=== PATIENT | male | born 1960 | race Caucasian/White ===

== ENCOUNTER 2017-04-14 09:07 | Emergency (ER) | payer BC ==
[2017-04-14 09:26] VITALS: BP 125/70
--- NOTE | 2017-04-14 09:54 | UC ---
Lower Extremity/Ankle HPI - HPI Summary HPI Summary: right great toe pain began last night, today toe is red and tender with some lymph streaking, no fevers chills or drainage from toe- - History of Current Complaint Chief Complaint: UCLowerExtremity Stated Complaint: TOE INJURY Time Seen by Provider: 04/14/17 09:52 Hx Obtained From: Patient Onset/Duration: Sudden Onset, Lasting Days - 1, Worse Since - this morning Severity Initially: Moderate Severity Currently: Moderate Pain Intensity: 7 Pain Scale Used: 0-10 Numeric Aggravating Factor(s): Standing, Ambulation Able to Bear Weight: Yes - Allergies/Home Medications Allergies/Adverse Reactions: Allergies Allergy/AdvReac Type Severity Reaction Status Date / Time No Known Allergies Allergy Verified 03/19/16 13:02 Home Medications: Home Medications Glucosamine-Chondroitin [Glucosamine & Chondroitin 500-400 mg] 1 cap PO TID [History Confirmed 04/14/17] Multiple Vitamins W/ Minerals [Multivitamin Men] 1 tab PO TID 04/14/17 [History Confirmed 04/14/17] Propafenone HCl [Propafenone HCl ER] 1 tab PO BID 04/14/17 [History Confirmed ] celeCOXIB CAP* [Celebrex CAP*] 1 tab PO DAILY PRN 04/14/17 [History Confirmed ] PMH/Surg Hx/FS Hx/Imm Hx Previously Healthy: No Cardiovascular History: Atrial Fibrillation - Surgical History Surgical History: Yes Surgery Procedure, Year, and Place: Rt KNEE - ARTHROSCOPIC 1978. CARDIAC ABLATION 07/20/2012 - Family History Known Family History: Positive: None - Social History Occupation: Employed Full-time Lives: With Family Alcohol Use: Rare Substance Use Type: None Smoking Status (MU): Never Smoked Tobacco - Immunization History Most Recent Influenza Vaccination: 03/12 Review of Systems Constitutional: Negative Skin: Other - erythema around right great toe nail with lymph streaking Eyes: Negative ENT: Negative Respiratory: Negative Cardiovascular: Negative Gastrointestinal: Negative Genitourinary: Negative Motor: Negative Neurovascular: Negative Musculoskeletal: Negative Neurological: Negative Psychological: Negative Is Patient Immunocompromised?: No All Other Systems Reviewed And Are Negative: Yes Physical Exam Triage Information Reviewed: Yes Appearance: Well-Appearing, No Pain Distress, Well-Nourished Vital Signs: Initial Vital Signs Temp 98.1 F 04/14/17 09:21 Pulse 73 04/14/17 09:21 Resp 18 04/14/17 09:21 BP 125/70 04/14/17 09:21 Pulse Ox 100 04/14/17 09:21 Vital Signs Reviewed: Yes Eye Exam: Normal Eyes: Positive: Conjunctiva Clear ENT Exam: Normal ENT: Positive: Normal ENT inspection, Hearing grossly normal. Negative: Nasal drainage, Trismus, Muffled voice, Hoarse voice Dental Exam: Normal Neck exam: Normal Neck: Positive: Supple, Nontender Respiratory Exam: Normal Respiratory: Positive: Chest non-tender, No respiratory distress, No accessory muscle use Cardiovascular Exam: Normal Cardiovascular: Positive: RRR, Pulses Normal, Brisk Capillary Refill Neurological Exam: Normal Neurological: Positive: Alert, Fatigued Psychological: Positive: Normal Response To Family Skin Exam: Other Skin: Positive: Other - erythema around right great toe nail Lower Extremity Course/Dx - Course Course Of Treatment: Keflex warm soaks, bulky dressing for protection, Keflex follow with pcp prn - Differential Dx/Diagnosis Provider Diagnoses: cellulitis right great toe Discharge - Discharge Plan Condition: Stable Disposition: HOME Prescriptions: Cephalexin CAP* [Keflex CAP*] 500 mg PO QID #28 cap Patient Education Materials: Paronychia (ED), Lymphangitis (ED), Warm Compress or Soak (ED) Referrals: Ric Roe DPM [Doctor of Podiatric Medicine] - 2 Days
== END 2017-04-14 10:16 | disposition home or self-care (01) ==
LOC: UCEAST 09:07
DX: L03.039 Cellulitis of unspecified toe (principal); I48.91 Unspecified atrial fibrillation
CPT/HCPCS: 99212; G0463

== ENCOUNTER 2017-04-14 19:50 | Emergency (ER) | payer BC ==
[2017-04-14] MEDS ORDERED: Ondansetron INJ* 2 MG/ML VIAL IV ONE (20:46)
[2017-04-14] MEDS ORDERED: Morphine INJ* 4 MG/ML 1 ML CARPUJECT IV ONE ×2 (20:47→22:22)
[2017-04-14] MEDS ORDERED: NS 0.9% 1000 ML* 1,000 ML IV ONE (20:48)
[2017-04-14] MEDS ORDERED: Vancomycin(*) 1,000 MG in NS 0.9% 250 ML* 250 ML IVPB ONE (20:49)
[2017-04-14 21:16] LABS: Hematocrit 44 % (42-52); Hemoglobin 15.2 g/dl (14.0-18.0); Mean Corpuscular HGB Conc 34 g/dl (31-36); Mean Corpuscular Hemoglobin 31 pg (27-31); Mean Corpuscular Volume 90 fL (80-94); Mean Platelet Volume 7 um3 (7.4-10.4); Red Blood Count 4.95 10^6/ul (4.0-5.4); Red Cell Distribution Width 13 % (10.5-15); White Blood Count 6.8 10^3/ul (3.5-10.8)
[2017-04-14 21:31] LABS: Albumin 4.2 g/dL (3.2-5.2); BUN/Creatinine Ratio 17.7 (8-20); C Reactive Protein 14.49 mg/L (< 5.00); Calcium 9.7 mg/dL (8.6-10.3); EGFR African American 103.8 (>60); EGFR Non-African American 80.7 (>60); Globulin 2.9 g/dL (2-4); Potassium 3.6 mmol/L (3.5-5.0); Total Bilirubin 0.4 mg/dL (0.2-1.0); Total Protein 7.1 g/dL (6.4-8.9)
[2017-04-14] MEDS ORDERED: Lidocaine 2% PF * 5 ML VIAL ONE ×2 (22:15→22:16)
[2017-04-14] MEDS ORDERED: Morphine INJ* 4 MG/ML 1 ML CARPUJECT ONE (22:19)
--- NOTE | 2017-04-14 22:21 | RAD ---
INDICATION: Pain and swelling of the right great great toe COMPARISON: None. TECHNIQUE: 3 views of the right foot were obtained. FINDINGS: The adequately corticated bones are properly aligned. Small enthesophytes are seen at the calcaneal tubercle at the insertion site of the Achilles tendon and origin of plantar fascia. Joint spaces appear maintained. No fracture, dislocation or focal bony abnormality is seen. IMPRESSION: DEGENERATIVE CHANGES DESCRIBED ABOVE. If the patient's symptoms persist, follow-up imaging is recommended.
--- NOTE | 2017-04-14 22:44 | ED ---
Booker Ramos Thomas, scribed for Katey Deluna MD on 04/14/17 at 2049 . Lower Extremity - HPI Summary HPI Summary: The pt is a 57 y/o M presenting to the ED c/o pain, redness, and swelling to his right great toe that began yesterday night. The pain is constant. The pain is described as throbbing. The pain is rated 9/10. The pain is aggravated by touch and is alleviated by nothing. 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 Pt denies fever, chills, and groin pain. The patient was seen earlier today at urgent care and was given Keflex 500mg at 11:00. - History of Current Complaint Chief Complaint: EDExtremityLower Stated Complaint: BIG TOE INFECTION Time Seen by Provider: 04/14/17 20:30 Hx Obtained From: Patient Onset/Duration: Days - 1 Severity Currently: Severe Pain Intensity: 9 Pain Scale Used: 0-10 Numeric Timing: Constant Location: Is Discrete @ - right great toe Character Of Pain: Throbbing Associated Signs And Symptoms: Positive: Swelling, Redness Aggravating Factor(s): Other - Touch Alleviating Factor(s): Nothing - Allergies/Home Medications Allergies/Adverse Reactions: Allergies Allergy/AdvReac Type Severity Reaction Status Date / Time No Known Allergies Allergy Verified 04/14/17 19:57 PMH/Surg Hx/FS Hx/Imm Hx Previously Healthy: Yes Endocrine/Hematology History: Denies: Hx Diabetes, Hx Thyroid Disease Cardiovascular History: Denies: Hx Hypertension, Hx Pacemaker/ICD Respiratory History: Denies: Hx Asthma, Hx Chronic Obstructive Pulmonary Disease (COPD) GI History: Denies: Hx Ulcer History: Denies: Hx Renal Disease Sensory History: Denies: Hx Hearing Aid Psychiatric History: Denies: Hx Panic Disorder - Surgical History Surgery Procedure, Year, and Place: Rt KNEE - ARTHROSCOPIC 1978. CARDIAC ABLATION 07/20/2012 Infectious Disease History: No Infectious Disease History: Denies: Hx Hepatitis, Hx Human Immunodeficiency Virus (HIV), History Other Infectious Disease, Traveled Outside the [place] in Last 30 Days - Family History Known Family History: Positive: Other - Per EMR, patient denies any FHx of disease - Social History Alcohol Use: Rare Substance Use Type: Reports: None Smoking Status (MU): Never Smoked Tobacco Review of Systems Negative: Fever, Chills Positive: Other - R great toe pain, swelling, redness; NEGATIVE: groin pain All Other Systems Reviewed And Are Negative: Yes Physical Exam - Summary Physical Exam Summary: VITAL SIGNS: Reviewed. GENERAL: Patient is a well-developed and nourished male who is lying comfortable in the stretcher. Patient is not in any acute respiratory distress. HEAD AND FACE: No signs of trauma. No ecchymosis, hematomas or skull depressions. No sinus tenderness. EYES: PERRLA, EOMI x 2, No injected conjunctiva, no nystagmus. EARS: Hearing grossly intact. Ear canals and tympanic membranes are within normal limits. MOUTH: Oropharynx within normal limits. NECK: Supple, trachea is midline, no adenopathy, no JVD, no carotid bruit, no c- spine tenderness, neck with full ROM. CHEST: Symmetric, no tenderness at palpation LUNGS: Clear to auscultation bilaterally. No wheezing or crackles. CVS: Regular rate and rhythm, S1 and S2 present, no murmurs or gallops appreciated. ABDOMEN: Soft, non-tender. No signs of distention. No rebound no guarding, and no masses palpated. Bowel sounds are normal. EXTREMITIES: The patient's right first toe is red, warm, and tender. There is paronychia on both sides of the nail bed. There are some red streaks on the red foot up to the distal right leg. Otherwise, FROM in all major joints, no edema, no cyanosis or clubbing. NEURO: Alert and oriented x 3. No acute neurological deficits. Speech is normal and follows commands. SKIN: Dry and warm Triage Information Reviewed: Yes Vital Signs On Initial Exam: Initial Vitals Temp Pulse Resp BP Pulse Ox 98.2 F 73 14 154/84 99 04/14/17 19:55 04/14/17 19:55 04/14/17 19:55 04/14/17 19:55 04/14/17 19:55 Vital Signs Reviewed: Yes Procedures - Procedure Summary Procedure Summary: PROCEDURE NOTE: There was paronychia on the patients right first toe. I did an incision and drainage. There was ring block anesthesia. I used lidocaine 2% plain. I used blade 11. There was a transverse incision of the nail bed and 3-4 ccs of pus mixed with blood came out. I irrigated with normal saline. The wound was packed with Iodoform. The patient tolerated the procedure well. Diagnostics - Vital Signs Vital Signs Temp Pulse Resp BP Pulse Ox 04/14/17 19:55 98.2 F 73 14 154/84 99 - Laboratory Result Diagrams: 04/14/17 21:08 04/14/17 21:08 Lab Statement: Any lab studies that have been ordered have been reviewed, and results considered in the medical decision making process. - Radiology Foot XR Xray Interpretation: No Acute Changes Radiology Interpretation Completed By: Radiologist - EKG 20:55 Cardiac Rate: NL EKG Rhythm: Sinus Rhythm EKG Interpretation: 75 BPM. Normal EKG. No acute ischemic change. Lower Extremity Course/Dx - Course Assessment/Plan: The pt is a 57 y/o M presenting to the ED c/o pain, redness, and swelling to his right great toe that began yesterday night. The pain is constant. The pain is described as throbbing. The pain is rated 9/10. The pain is aggravated by touch and is alleviated by nothing. 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 Pt denies fever, chills, and groin pain. The patient was seen earlier today at urgent care and was given Keflex 500mg at 11:00. EKG shows sinus rhythm with no acute ischemic changes. Bloodwork was obtained. The patient will be given 1g of Vancomycin, which will cover him for 24 hours in terms of antibiotics. He will follow up at Dr. Johnston office tomorrow morning for drainage and further care. - Diagnoses Provider Diagnoses: Right toe infection / Paronychia - Physician Notifications Discussed Care Of Patient With: Ric Roe Time Discussed With Above Provider: 21:21 Instructed by Provider To: Other - I consulted with Dr. Roe, operating engineer apprentice, who will see the patient at his office tomorrow morning. Discharge - Discharge Plan Condition: Stable Disposition: HOME Referrals: Yoli Perez MD [Primary Care Provider] - If Needed Ric Roe DPM [Doctor of Podiatric Medicine] - 1 Day Additional Instructions: Follow up at the operating engineer apprentice's office tomorrow morning. The documentation as recorded by the Booker campos Thomas accurately reflects the service I personally performed and the decisions made by Regi rae Abdul, MD.
[2017-04-14] MEDS ORDERED: diPHENhydraMINE IV* 50 MG/ML 1 ml VIAL (BENADRYL) IV ONE (23:12)
[2017-04-14] MEDS ORDERED: oxyCODONE/Acetamin 5/325 MG* TAB PO ONE (23:13)
[2017-04-15 00:42] VITALS: BP 140/80
--- NOTE | 2017-04-15 19:05 | ED ---
Progress - Progress Note Progress Note: Pt's wound cx reveals s. aureus - he was d/c'd on clindamycin. No changes at this time. Course/Dx - Diagnoses Provider Diagnoses: Right toe infection / Paronychia - Provider Notifications Time Discussed With Above Provider: 21:21 Instructed by Provider To: Other - I consulted with Dr. Roe, machine overhauler, who will see the patient at his office tomorrow morning.
== END 2017-04-14 23:58 | disposition home or self-care (01) ==
LOC: ED 19:50
DX: L03.031 Cellulitis of right toe (principal); B95.61 Methicillin susceptible Staphylococcus aureus infection as the cause of diseases classified elsewhere
CPT/HCPCS: 36415; 80053; 83605; 85025; 85610; 85730; 86140; 87040; 87070; 87077; 87186; 87205; 87640; 87641; 93005; 96360; 96374; 96375; 96376; 99285; A9270-GY; J1200; J2270; J2405; J3370

== ENCOUNTER 2017-09-30 17:46 | Emergency (ER) | payer BC ==
[2017-09-30] MEDS ORDERED: NS 0.9% 1000 ML* 1,000 ML IV ONE (19:59)
[2017-09-30] MEDS ORDERED: Ondansetron INJ* 2 MG/ML VIAL IV ONE (20:00)
[2017-09-30] MEDS ORDERED: Meclizine TAB* 12.5 MG PO ONE (20:00)
[2017-09-30 20:17] LABS: ABS Basophils 0 10^3/ul (0-0.2); ABS Eosinophils 0 10^3/ul (0-0.6); ABS Lymphocytes 1.3 10^3/ul (1.0-4.8); ABS Monocytes 0.6 10^3/ul (0-0.8); ABS Neutrophils 9.2 10^3/ul (1.5-7.7); ABS Nucleated RBC 0 10^3/ul; Eosinophil % 0.2 % (0-6); Hematocrit 45 % (42-52); Hemoglobin 15.4 g/dl (14.0-18.0); Lymphocyte % 11.7 % (25-47); Mean Corpuscular HGB Conc 34 g/dl (31-36); Mean Corpuscular Hemoglobin 31 pg (27-31); Mean Corpuscular Volume 90 fL (80-94); Mean Platelet Volume 7.4 um3 (7.4-10.4); Nucleated Red Blood Cells % 0; Platelet Count 183 10^3/ul (150-450); Red Blood Count 4.99 10^6/ul (4.0-5.4); Red Cell Distribution Width 14 % (10.5-15); White Blood Count 11.2 10^3/ul (3.5-10.8)
[2017-09-30 20:34] LABS: EGFR Non-African American 79.8 (>60)
[2017-09-30] MEDS ORDERED: Rivaroxaban TAB(*) 10 MG PO ONE (21:21)
--- NOTE | 2017-09-30 21:21 | RAD ---
INDICATION: Dizziness, nausea and vomiting COMPARISON: None. TECHNIQUE: Contiguous axial sections of the brain were obtained from the skull base to the vertex without contrast. FINDINGS: The ventricles, cisterns and sulci are within normal limits. The sanabria-white matter differentiation is adequately maintained and there is no sulcal effacement. No significant focal abnormality or mass effect is present. There is no evidence for intracranial hemorrhage. No significant focal osseous abnormality is present. The visualized portion of the paranasal sinuses appear clear. The mastoid air cells are well aerated bilaterally. IMPRESSION: Normal CT of the brain.
--- NOTE | 2017-09-30 21:30 | ED ---
Andres Ramos Rebecca, scribed for Katey Deluna MD on 09/30/17 at 1958 . Dizziness - HPI Summary HPI Summary: Pt is a 57 y/o M BIBA who presents to ED due to an episode of sudden onset dizziness, N/V. 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 Vomiting has resolved, nausea is still mildly present and dizziness is now intermittent, present occasionally when his eyes are closed. Sx aggravated by closing his eyes, alleviated by darkness. Has not tried walking since onset of symptoms. One prior similar episode "many years ago " while walking home. PMHx A Fib - takes ASA. - History Of Current Complaint Chief Complaint: EDDizziness Stated Complaint: NAUSEA/VOMITING Time Seen by Provider: 09/30/17 19:33 Hx Obtained From: Patient Onset/Duration: Still Present Timing: Intermittent Episode Lasting Aggravating Factor(s): Other - Closing eyes Alleviating Factor(s): Other - Darkness Associated Signs And Symptoms: Positive: Nausea, Vomiting Related History: Similar Episode/Dx as - "many years ago" - Allergies/Home Medications Allergies/Adverse Reactions: Allergies Allergy/AdvReac Type Severity Reaction Status Date / Time No Known Allergies Allergy Verified 04/14/17 19:57 Home Medications: Home Medications Aspirin EC TAB* [Ecotrin EC Low Dose 81 MG*] 81 mg PO DAILY 09/30/17 [History Confirmed 09/30/17] Glucosamine CAP (NF) 1,000 cap PO TID 09/30/17 [History Confirmed 09/30/17] Multivitamins/Minerals TAB* [Theragran/minerals TAB*] 1 tab PO TID 09/30/17 [ History Confirmed 09/30/17] Propafenone ER (NF) [Rythmol SR (NF)] 225 mg PO BID 09/30/17 [History Confirmed 09/30/17] PMH/Surg Hx/FS Hx/Imm Hx Endocrine/Hematology History: Denies: Hx Diabetes, Hx Thyroid Disease Cardiovascular History: Reports: Hx Atrial Fibrillation Denies: Hx Hypertension, Hx Pacemaker/ICD Respiratory History: Denies: Hx Asthma, Hx Chronic Obstructive Pulmonary Disease (COPD) GI History: Denies: Hx Ulcer History: Denies: Hx Renal Disease Sensory History: Denies: Hx Hearing Aid Psychiatric History: Denies: Hx Panic Disorder - Surgical History Surgery Procedure, Year, and Place: Rt KNEE - ARTHROSCOPIC 1978. CARDIAC ABLATION 07/20/2012 Infectious Disease History: No Infectious Disease History: Denies: Hx Hepatitis, Hx Human Immunodeficiency Virus (HIV), History Other Infectious Disease, Traveled Outside the [place] in Last 30 Days - Family History Known Family History: Positive: Other - Per EMR, patient denies any FHx of disease - Social History Alcohol Use: Rare Substance Use Type: Reports: None Smoking Status (MU): Never Smoked Tobacco Review of Systems Positive: Vomiting, Nausea Neurological: Other - Dizziness All Other Systems Reviewed And Are Negative: Yes Physical Exam - Summary Physical Exam Summary: VITAL SIGNS: Reviewed. GENERAL: ~Patient is a well-developed and nourished male who is lying comfortable in the stretcher. Patient is not in any acute respiratory distress. HEAD AND FACE: No signs of trauma. No ecchymosis, hematomas or skull depressions. No sinus tenderness. EYES: PERRLA, EOMI x 2, No injected conjunctiva, no nystagmus. EARS: Hearing grossly intact. Ear canals and tympanic membranes are within normal limits. MOUTH: Oropharynx within normal limits. NECK: Supple, trachea is midline, no adenopathy, no JVD, no carotid bruit, no c- spine tenderness, neck with full ROM. CHEST: Symmetric, no tenderness at palpation LUNGS: Clear to auscultation bilaterally. No wheezing or crackles. CVS: Regular rate and rhythm, S1 and S2 present, no murmurs or gallops appreciated. EXTREMITIES: FROM in all major joints, no edema, no cyanosis or clubbing. NEURO: Alert and oriented x 3. No acute neurological deficits. Speech is normal and follows commands. SKIN: Dry and warm Triage Information Reviewed: Yes Vital Signs On Initial Exam: Initial Vitals Temp Pulse Resp BP Pulse Ox 97 F 67 16 148/95 98 09/30/17 17:51 09/30/17 17:51 09/30/17 17:51 09/30/17 17:51 09/30/17 17:51 Vital Signs Reviewed: Yes - [place] Coma Scale [place] Coma Scale Comments: 15 Diagnostics - Vital Signs Vital Signs Temp Pulse Resp BP Pulse Ox 09/30/17 18:23 64 15 134/87 96 09/30/17 18:04 67 20 129/79 99 09/30/17 18:00 63 99 09/30/17 17:53 65 148/95 96 09/30/17 17:52 69 98 09/30/17 17:51 97 F 67 16 148/95 98 - Laboratory Lab Results: Lab Results 09/30/17 Range/Units 18:07 POC Glucose (mg/dL) 119 H (70-100) mg/dL Result Diagrams: 09/30/17 20:08 09/30/17 20:08 Lab Statement: Any lab studies that have been ordered have been reviewed, and results considered in the medical decision making process. - CT Brain CT CT Interpretation: No Acute Changes - Normal CT of the brain. ED physician reviewed this radiology report. CT Interpretation Completed By: Radiologist - EKG 1804 Cardiac Rate: NL - 65 bpm EKG Rhythm: Sinus Rhythm EKG Interpretation: Normal axis. Normal interval. No ischemic changes. 2108 Cardiac Rate: Tachycardia - 102 bpm EKG Rhythm: Atrial Fibrillation EKG Interpretation: A fib at a rate of 102 bpm Re-Evaluation - Re-Evaluation First Eval Re-Evaluation Time: 20:27 Change: Improved Comment: Was able to walk. Second Eval Re-Evaluation Time: 21:12 Comment: Pt went into A fib while in the ED, hes rate controlled. Pt stated that he is on rythmol 225 BID. Last time he was in A fib was last week after playing basketball and it lasted for a half an hour. He was converted to sinus rhythm by itself last week. Will contact wood bucker to see if it is okay to give him rythmol. Third Eval Re-Evaluation Time: 21:24 Comment: Discussed conversation with wood bucker and plan to D/C. Dizzy Course/Dx - Course Assessment/Plan: Pt is a 57 y/o M BIBA who presents to ED due to an episode of sudden onset dizziness, N/V at approximately 1645 while sitting in a meeting. Vomiting has resolved, nausea is still mildly present and dizziness is now intermittent, present occasionally when his eyes are closed. Sx aggravated by closing his eyes, alleviated by darkness. Has not tried walking since onset of symptoms. One prior similar episode "many years ago" while walking home. PMHx A Fib - takes ASA. First EKG was sinus rhythm with no ischemic changes. Pt went into A fib while in the ED, hes rate controlled. Pt stated that he is on rythmol 225 BID. Last time he was in A fib was last week after playing basketball and it lasted for a half an hour. He was converted to sinus rhythm by itself last week. Will contact wood bucker to see if it is okay to give him rythmol. Second EKG was A Fib at a rate of [address] revealed no acute findings. Lab work was done. Discussed care of pt with Dr. Butt who advised 1 dose of Xarelto and a follow up with cardiology. In the ED course, pt was given antivert, zofran, xarelto and fluids. Pt will be D/C to home with Dx of benign positional vertigo with Rx for antivert. He understands and agrees. - Diagnoses Provider Diagnoses: Benign positional vertigo - Provider Notifications Discussed Care Of Patient With: Antelmo Butt Time Discussed With Above Provider: 21:17 Instructed by Provider To: Other - Advised that the pt is given 1 dose of Xarelto and that he should call the office in the morning. Discharge - Sign-Out/Discharge Documenting (check all that apply): Discharge/Admit/Transfer - Discharge - Discharge Plan Condition: Stable Disposition: HOME Prescriptions: Meclizine TAB* [Antivert 12.5 TAB*] 25 mg PO TID PRN #20 tab PRN Reason: Dizziness Patient Education Materials: Vertigo (ED) Referrals: Yoli Perez MD [Primary Care Provider] - 3 Days Additional Instructions: Call Dr. Foster tomorrow if you are still in A Fib. Use antivert as needed for vertigo. Follow up with your primary care physician. RETURN TO EMERGENCY DEPARTMENT FOR ANY NEW OR WORSENING SYMPTOMS. The documentation as recorded by the Andres campos Rebecca accurately reflects the service I personally performed and the decisions made by me, Katey Deluna MD.
[2017-09-30 21:43] VITALS: BP 117/81
[2017-09-30] MEDS ORDERED: Rivaroxaban TAB(*) 20 MG TAB PO ONE (22:00)
== END 2017-09-30 21:41 | disposition home or self-care (01) ==
LOC: ED 17:46
DX: H81.10 Benign paroxysmal vertigo, unspecified ear (principal); I48.91 Unspecified atrial fibrillation
CPT/HCPCS: 36415; 70450; 80053; 85025; 93005; 96361; 96374; 99284; A9270-GY